=== PATIENT | male | born 1995 | race Caucasian/White ===

== ENCOUNTER 2021-10-28 19:44 | Emergency (ER) | payer OTHER ==
[~2021-10-28] VITALS: Ht 165.1 cm; Wt 65.9 kg
[2021-10-28] MEDS ORDERED: DiphenhydrAMINE HCL 25 MG CAPSULE PO ONE (20:15)
[2021-10-28] MEDS ORDERED: LIDOCAINE/PF 1% 2 ML VIAL IM ONE (20:15)
[2021-10-28] MEDS ORDERED: AZITHROMYCIN 500 MG TABLET PO ONE (20:15)
[2021-10-28] MEDS ORDERED: CefTRIAXone SODIUM 1 GM/VIAL IM ONE (20:15)
[2021-10-28 21:20] LABS: APPEARANCE,URINE CLEAR (CLEAR); BILIRUBIN,URINE NEGATIVE (NEGATIVE); GLUCOSE, URINE (UA) NEGATIVE (NEGATIVE); KETONES,URINE NEGATIVE (NEGATIVE); LEUKOCYTE ESTERASE ,URINE NEGATIVE (NEGATIVE); NITRATE,URINE NEGATIVE (NEGATIVE); OCCULT BLOOD,URINE NEGATIVE (NEGATIVE); PROTEIN,URINE TRACE mg/dL (NEGATIVE); SPECIFIC GRAVITIY, URINE 1.026 (1.003-1.030); UROBILINOGEN,URINE <=1.0 mg/dL (<=1.0)
[2021-10-28 21:30] VITALS: BP 151/62
== END 2021-10-28 21:55 | disposition home or self-care (01) ==
LOC: EMS 19:51
DX: N34.2 Other urethritis (principal); I10 Essential (primary) hypertension; F12.90 Cannabis use, unspecified, uncomplicated; Z88.0 Allergy status to penicillin
CPT/HCPCS: 99283; 81003; 87491; 87591; 96372; J0696; J3490; Q9967